=== PATIENT | male | born 1955 | race Caucasian/White ===

== ENCOUNTER 2016-12-23 09:10 | Emergency (ER) | payer OTHER ==
--- NOTE | 2016-12-23 10:01 | ED ---
Lower Extremity - HPI Summary HPI Summary: 61 male presents with complaints of right knee pain that has increased over the past couple of days. Patient has been dealing with some knee pain for the past couple of weeks. Saw his primary care at [place] where they took x-rays and told him they did see a small bone spur and some arthritis and was sent to ortho in [place]. He had a cortisone injection last thursday that he states did not help him that much. Patient denies any new symptoms besides increased pain. He describes it as a dull ache that is sharp at times. Worse with walking better with rest. Denies numbness/tingling. No swelling, bruising, redness or obvious deformity. Denies any known trauma or injury. Has been taking extra strength tylenol for pain at home that has not been helping him. Is on xarelto currently. PMHx significant for a flutter, sleep apnea and diabetes. - History of Current Complaint Chief Complaint: EDExtremityLower Stated Complaint: RT KNEE PAIN Time Seen by Provider: 12/23/16 09:31 Hx Obtained From: Patient Mechanism Of Injury: Unknown Onset of Pain: Days - weeks Onset/Duration: Worse Since Severity Initially: Mild Severity Currently: Moderate Pain Intensity: 7 Pain Scale Used: 0-10 Numeric Timing: Constant Location: Is Discrete @ - right knee, no radiation Character Of Pain: Sharp, Dull, Aching Associated Signs And Symptoms: Positive: Knee Pain - right Aggravating Factor(s): Standing, Ambulation, Movement Alleviating Factor(s): Rest Able to Bear Weight: Yes - causes pain - Allergies/Home Medications Allergies/Adverse Reactions: Allergies Allergy/AdvReac Type Severity Reaction Status Date / Time No Known Allergies Allergy Verified 12/23/16 09:12 PMH/Surg Hx/FS Hx/Imm Hx Endocrine/Hematology History: Reports: Hx Diabetes - ON ORAL MEDS Cardiovascular History: Reports: Hx Hypertension - WELL CONTROLLED, Other Cardiovascular Problems/Disorders - a flutter Respiratory History: Reports: Hx Sleep Apnea Sensory History: Reports: Hx Contacts or Glasses - GLASSES Denies: Hx Hearing Aid Opthamlomology History: Reports: Hx Contacts or Glasses - GLASSES - Surgical History Surgery Procedure, Year, and Place: T+A A CHILD. 1980s LEFT #2 TOE AMP LEN Hx Anesthesia Reactions: No - Immunization History Immunizations Up to Date: Yes Infectious Disease History: No Infectious Disease History: Denies: Traveled Outside the [place] in Last 30 Days - Family History Known Family History: Positive: Cardiac Disease - Social History Alcohol Use: None Substance Use Type: Reports: None Smoking Status (MU): Never Smoked Tobacco Have You Smoked in the Last Year: No Review of Systems Constitutional: Negative Cardiovascular: Negative Respiratory: Negative Positive: Arthralgia, Myalgia - right knee Skin: Negative Neurological: Negative All Other Systems Reviewed And Are Negative: Yes Physical Exam Triage Information Reviewed: Yes Vital Signs On Initial Exam: Initial Vitals Temp Pulse Resp BP Pulse Ox 98.7 F 90 20 139/75 98 12/23/16 09:12 12/23/16 09:12 12/23/16 09:12 12/23/16 09:12 12/23/16 09:12 Vital Signs Reviewed: Yes Appearance: Positive: Well-Appearing, No Pain Distress, Well-Nourished Skin: Positive: Warm, Skin Color Reflects Adequate Perfusion, Dry, Other - no ecchymosis, edema or erythema. Negative: Cold, Numb, Soft, Pale, Erythema @ Head/Face: Positive: Normal Head/Face Inspection Eyes: Positive: Conjunctiva Clear ENT: Positive: Pharynx normal Neck: Positive: Supple, Nontender Respiratory/Lung Sounds: Positive: Clear to Auscultation, Breath Sounds Present. Negative: Rales, Rhonchi, Wheezes Cardiovascular: Positive: Normal, RRR, Pulses are Symmetrical in both Upper and Lower Extremities - 2+. Negative: Murmur, Rub Musculoskeletal: Positive: Normal, Strength/ROM Intact - however is painful, Pain @ - right knee, more on anterior medial knee, Other - no obvious deformity , crepitus or step off. Negative: Limited @, Interruption @ Neurological: Positive: Normal, Sensory/Motor Intact - sensation intact, Alert, Oriented to Person Place, Time, CN Intact II-III, Reflexes Intact, NV Bundle Intact Distally, Abnormal Gait - favoring left knee due to pain, limping Psychiatric: Positive: Affect/Mood Appropriate Diagnostics - Vital Signs Vital Signs Temp Pulse Resp BP Pulse Ox 12/23/16 09:18 98.7 F 90 20 139/75 98 12/23/16 09:12 98.7 F 90 20 139/75 98 - Laboratory Lab Statement: Any lab studies that have been ordered have been reviewed, and results considered in the medical decision making process. Lower Extremity Course/Dx - Course Course Of Treatment: due to patient already having x-rays taken a week in a half ago, no need for additional imaging at this time. on anticoagulant and a diabetic, medications limited. given appropriate pain management and knee immobilizer, continue RICE. Follow up ortho for further evaluation and imaging. Aware of worsening signs and symptoms. - Diagnoses Differential Diagnosis/HQI/PQRI: Positive: Arthritis, Contusion, Sprain, Strain Provider Diagnoses: Right knee pain Discharge - Discharge Plan Condition: Stable Disposition: HOME Prescriptions: HYDROcodone/ACETAMIN 5-325 MG* [[place] 5-325 TAB*] 1 tab PO Q4H PRN #25 tab MDD 3 PRN Reason: Pain Patient Education Materials: Knee Pain (ED) Referrals: Jayesh Han MD [Primary Care Provider] - Additional Instructions: Take prescribed pain medication as directed. Do not drive while taking this medication. Follow up and make an appointment with ortho for further evaluation and imaging. Rest, elevate and ice. Use immobilizer for extra support. If new symptoms develop please seek medical attention promptly. Follow up PCP.
[2016-12-23 10:51] VITALS: BP 132/68
== END 2016-12-23 10:50 | disposition home or self-care (01) ==
LOC: ED 09:10
DX: M25.561 Pain in right knee (principal); E11.8 Type 2 diabetes mellitus with unspecified complications; Z79.84 Long term (current) use of oral hypoglycemic drugs; I10 Essential (primary) hypertension
CPT/HCPCS: 99282